=== PATIENT | female | born 1980 | race African-American/Black ===

== ENCOUNTER 2024-08-24 07:54 | Emergency (ER) | payer OTHER, SELFPAY ==
[2024-08-24 07:59] VITALS: BP 150/87
[2024-08-24 08:20] VITALS: BMI 27.3
--- NOTE | 2024-08-24 08:33 | ED.MUSCINJ ---
HPI-Injury
General
Chief Complaint: Musculo-Skeletal Complaint
Source: patient
Exam Limitations: none
Time Seen by Provider: 08/24/24 08:16
Nursing documentation reviewed up to this point in time: agreed with
History of Present Illness-Injury
Is this injury a work related problem?: No
Is pt an associate of [facility]?: No
Initial Injury comments:
43-year-old female presents emergency department after twisting her ankle and hearing a pop in her foot. She did not fall.
Past History
Past History
ED Past Medical History: None
ED Past Surgical History: None
Social History
Tobacco: Non-smoker
Alcohol: Occasional
Drug: None
Living: with family
Employment: Employed
Review of Systems
Review of Systems
Allergies reviewed?: Yes
All Other Systems: Not applicable
Constitutional: Reports no symptoms
EENT: Reports no symptoms
Respiratory: Reports no symptoms
Cardiac: Reports no symptoms
ABD/GI: Reports no symptoms
: Reports no symptoms
Musculoskeletal: Reports joint pain
Skin: Reports no symptoms
Neurological: Reports no symptoms
Endocrine: Reports no symptoms
Hematologic/Lymphatic: Reports no symptoms
Psychiatric: Reports no symptoms
Musculoskeletal Injury Exam
Musculoskeletal Injury Exam
Right Ankle:
Pain with Movement?: Moderate
Tender to palpation?: Moderate
Soft tissue swelling?: Mild
External deformity and angulation?: None
Joint effusion?: None
Contusion?: None
Hematoma-local bleeding into tissue?: None
Strain- Sprain- Tear (Connective tissue injury)?: Mild
Crepitus with movement?: No
Joint instability?: No
Malalignment/deformity?: No
Range of motion: Limited
Distal skin color and temperature: normal-warm & good color
Capillary Refill: normal
Normal distal neurovascular exam?: Yes
Peripheral Pulses: posterior tibial (left): 4+, posterior tibial (right): 4+, dorsalis pedis (left): 4+ and dorsalis pedis (right): 4+
Phy Exam
Physical Exam
Physical Exam:
No acute distress
Injury Course
Orders/Labs/Results
Orders:
Orders
08/24/24 08:02
Foot, Right 3 View [CR Foot - Right Min 3 Views] Urgent
Comment: pt sts heard a crack
Reason For Exam: right foot pain tripped walking out the door
MDM/Problems Addressed
Differential Diagnosis Includes:
Ankle fracture, ankle sprain
MDM/Problems Addressed:
43 yo female with right ankle sprain, no fracture seen. CLARA wrap applied, air splint applied.
*Radiology
Radiology exam reviewed: preliminary read by ED provider (right foot xray, no fracture)
*Pulse Oximetry
Patient hypoxic: no
*Critical Care Note
Total Time (30-74mins, 75-104mins- exclusive of procedures): Not Applicable
Patient Management
Social determinants of health affecting care: Living situation
Escalation/DeEscalation of care consider admission/obs:
admit not indicated
ED Attending Note
-
Portions of this chart may have been created with voice recognition software.� Occasional wrong word or��sound alike� substitutions may have occurred due to the inherent limitations of voice recognition software.
Discharge Plan
Departure
Patient Disposition: Home (Routine Discharge)
Date of Disposition: 08/24/24
Time of Disposition: 08:43
Patient with high blood pressure during this ER visit?: No
Condition: Good
Discharge Problem:
Right ankle sprain
Instructions: How to Use Crutches, Sprain (DC)
Referrals:
Lena Segovia PA [Family Provider] - Call in 1-3 days for appt
Interventions
Interventions:
*Risk Screen - Suicide Last Done: 08/24/24 07:59
*Neglect/Abuse Screening Last Done: 08/24/24 07:59
*ED COVID-19 Vaccine History Last Done: 08/24/24 08:21
ED-Musculoskeletal Assessment Last Done: 08/24/24 08:25
Discharge Date and Time
Print Language: WOLOF
[2024-08-24] MEDS: MOTRIN 600 MG PO (08:48)
== END 2024-08-24 09:13 | disposition home or self-care (01) ==
LOC: EMR 07:54
PROVIDERS: EMERGENCY PHYSICIAN Emergency Medicine; FAMILY PHYSICIAN Physician Assistant Medical
DX: S93.401A Sprain of unspecified ligament of right ankle, initial encounter (principal); X50.1XXA Overexertion from prolonged static or awkward postures, initial encounter; Z88.1 Allergy status to other antibiotic agents
CPT/HCPCS: 99283; 29515; 73630